=== PATIENT | male | born 1965 | race Two or more races ===

== ENCOUNTER 2017-10-10 12:41 | Outpatient (CLI) | payer OTHER | END 2017-10-10 12:49 | disposition home or self-care (01) | LOC: TOM 12:41 | DX: R91.1 Solitary pulmonary nodule (principal) ==

== ENCOUNTER 2018-08-14 11:18 | Outpatient (CLI) | payer OTHER | END 2018-08-14 11:35 | disposition home or self-care (01) | LOC: OFIC 805 11:18 | DX: H60.8X3 Other otitis externa, bilateral (principal); H61.23 Impacted cerumen, bilateral ==

== ENCOUNTER 2018-09-25 12:42 | Outpatient (CLI) | payer OTHER | END 2018-09-25 15:48 | disposition home or self-care (01) | LOC: RAD 12:42 | DX: M54.5 Low back pain (principal); E78.49 Other hyperlipidemia ==

== ENCOUNTER 2020-11-07 08:00 | Outpatient (CLI) | payer OTHER | END 2020-11-07 08:30 | disposition home or self-care (01) | LOC: PPH VACUNA 08:00 | DX: Z23 Encounter for immunization (principal) ==

== ENCOUNTER 2020-11-28 08:00 | Outpatient (CLI) | payer OTHER | END 2020-11-28 08:30 | disposition home or self-care (01) | LOC: PPH VACUNA 08:00 | DX: Z23 Encounter for immunization (principal) ==

== ENCOUNTER 2022-08-09 10:43 | Outpatient (CLI) | payer OTHER | END 2022-08-09 10:53 | disposition home or self-care (01) | LOC: TOM 10:43 | DX: R91.8 Other nonspecific abnormal finding of lung field (principal) ==

== ENCOUNTER 2025-03-11 11:37 | Outpatient (CLI) | payer OTHER | END 2025-03-11 11:42 | disposition home or self-care (01) | LOC: TOM 11:37 | DX: R91.8 Other nonspecific abnormal finding of lung field (principal) ==